=== PATIENT | male | born 1955 | race Caucasian/White ===

== ENCOUNTER 2018-08-03 21:45 | Inpatient (IN) | payer OTHER ==
[~2018-08-03] VITALS: Ht 177.8 cm; Wt 75.5 kg
[2018-08-03 21:51] VITALS: Ht 177.8 cm; Wt 75.5 kg
--- NOTE | 2018-08-03 21:58 | NUR ---
EKG IN PROGRESS BY EMT
--- NOTE | 2018-08-03 22:00 | NUR ---
PT BIB BY SISTER FOR C/O CHEST PAIN AND SOB. PT HAS PACEMAKER THAT WAS PLACED 3-5 YEARS AGO AND AN AORTIC VALVE REPLACEMENT IN 1986. PT TAKES COUMADIN ALONG WITH OTHER MEDS, BUT HIS RISK CONSULTANT CALLED YESTERDAY AND INSTRUCTED PT NOT TO TAKE COUMADIN TODAY BECAUSE HIS BLOOD LEVELS WERE TOO HIGH. PT HAS CHEST PAIN THAT DOES NOT RADIATE. PT STATES PAIN IS 8/10. PT IS SOB WITH RAPID RESPIRATIONS. PT APPEARS TO BE PALE. PT IS SPEAKING IN CLEAR AND FULL SENTENCES WITH MILD DISTRESS NOTED. PT SISTER AT BEDSIDE FOR TRANSLATION. PT CONNECTED TO OXYGEN AND CARDIAC, AND PLETH OX MONITORS. MD BRONSON AT BEDSIDE FOR MSE. PT CURTAIN OPEN TO NURSES STATION. WILL CONTINUE TO MONITOR
--- NOTE | 2018-08-03 22:05 | NUR ---
PT LUNG SOUNDS HAVE CRACKLES IN BILATERAL BASES
--- NOTE | 2018-08-03 22:14 | NUR ---
PT AGREED TO TAKE ASPIRIN PER MD BRONSON ORDERS. SEE EMAR. PT MADE AWARE OF REASONS TO TAKE ASPIRIN EVEN THOUGH PT WAS INSTRUCTED TO NOT TAKE ANY OTHER BLOOD THINNERS. PT VERBALIZED UNDERSTANDING AND AWARE OF NEED.
--- NOTE | 2018-08-03 22:19 | NUR ---
PT MEDICATED PER ORDER. PT VERBALIZED UNDERSTANDING OF MEDICATION TEACHING. SEE EMAR FOR DETAILS.
--- NOTE | 2018-08-03 22:30 | NUR ---
X RAY AT BEDSIDE
--- NOTE | 2018-08-03 22:36 | NUR ---
LAB AT BEDSIDE FOR BLOOD DRAW
[2018-08-03 22:44] LABS: BASOPHIL % 0.8 % (0-2); PLATELET COUNT 192 x10^3mcL (130-400)
--- NOTE | 2018-08-03 22:44 | NUR ---
PT STATES PAIN HAS NOW DECREASED TO A 3/10. RESPIRATIONS ARE DECREASING BUT STILL RAPID.
[2018-08-03 22:46] LABS: RED CELL DISTRIBUTION WIDTH 14.6 % (11.5-14.5)
[2018-08-03 23:06] LABS: CALCIUM 8.3 mg/dL (8.5-10.1); CARBON DIOXIDE 29.1 mmol/L (21-32); CREATININE SERUM 1.7 mg/dL (0.7-1.3); POTASSIUM SERUM 3.6 mmol/L (3.5-5.1)
[2018-08-03 23:11] LABS: BILIRUBIN TOTAL 0.7 mg/dL (0.20-1.00); TOTAL PROTEIN, SERUM 6.9 g/dL (6.4-8.2)
[2018-08-03 23:13] LABS: ALBUMIN 3.2 g/dL (3.4-5.0)
[2018-08-03] MEDS ORDERED: LATANOPROST2.5 ML OP (23:44)
--- NOTE | 2018-08-03 23:44 | NUR ---
SON AT BEDSIDE. PT AWARE HE IS BEING ADMITTED.
[2018-08-03] MEDS ORDERED: BETIMOL5 M1 OP (23:45)
[2018-08-03] MEDS ORDERED: FLOVENT DI100 MCG/A1 INH (23:46)
[2018-08-03] MEDS ORDERED: CLARITIN10 MG PO (23:46)
[2018-08-03] MEDS ORDERED: LEVOTHYROXIN0.088 M1 PO (23:47)
[2018-08-03] MEDS ORDERED: COUMADIN3 MG PO (23:47)
[2018-08-03] MEDS ORDERED: ZETIA10 M1 PO (23:47)
[2018-08-03] MEDS ORDERED: ZOCOR20 MG PO (23:48)
[2018-08-03] MEDS ORDERED: [UNRECOGNIZED DRUG - CODE] PO (23:49)
[2018-08-03] MEDS ORDERED: FUROSEMIDE40 MG PO (23:49)
[2018-08-03] MEDS ORDERED: LOSARTAN POTASS25 M1 PO (23:50)
[2018-08-03] MEDS ORDERED: AMIODARONE HCL200 MG PO (23:50)
[2018-08-03] MEDS ORDERED: CARVEDILOL25 M1 PO (23:50)
--- NOTE | 2018-08-04 00:20 | NUR ---
REPORT GIVEN TO JACOBY CALDERON
--- NOTE | 2018-08-04 00:40 | NUR ---
PT TRANSFERRED TO TELE FLOOR ACCOMPANIED BY NURSE AND EMT. NO S/S OF DISTRESS. RESP E/U. PT CONNECTED TO MONITOR UPON TRANSFER. IV SITE PATENT. NO S/S OF INFILTRATION. RN AT BEDSIDE TO ASSUME CARE OF PT.
--- NOTE | 2018-08-04 00:45 | NUR ---
PT ARIVIED VIA REDD ACCOMPANIED BY FAMILY AND ED NURSE, PT IS A/O X4, NO COMPLAINTS OF CHEST PAIN AT THIS TIME,INTERNAL PACEMAKER TO THE LEFT CHEST WALL TELE 16 VENTRICULAR PACING, PT REPORTS SOB WHICH RESOLVED WITH 2L O2 VIA NC, LUNG SOUNDS FINE CRACKLES IN THE RIGHT LOWER LOBE, PT WAS ORIENTED TO ROOM, CALL LIGHT AND INSTRUCTED TO CALL FOR ANY ASSISTANCE, IV TO THE RIGHT AC 20 G SALINE LOCKED, BED RAILS UP X2, CALL LIGHT WITHIN REACH, SAFETY PRECAUTIONS IN PLACE, WILL CONTINUE TO MONITOR.
[2018-08-04 01:04] VITALS: BP 103/71
--- NOTE | 2018-08-04 05:09 | NUR ---
PT HAD NO EPISODES OF CHEST PAIN THROUGH THE NIGHT, PT HAD NO OCCURANCES OF SOB SINCE ADMISSION. PT RESTED COMFORTABLY THROUGH SHIFT, ALL NEEDS ATTENDED TO, SAFETY PRECAUTIONS WERE MAINTAINED, WILL CONTINUE TO MONITOR AND ENDORSE CARE TO DAY SHIFT RN
[2018-08-04 05:55] VITALS: BP 107/68
--- NOTE | 2018-08-04 07:10 | NUR ---
RECEIVED BEDSIDE REPORT FROM SERVICES ACCOUNT MANAGER NURSE AT THIS TIME. PATIENT RESTING COMFORTABLY IN BED. NO APPARENT DISTRESS OR DISCOMFORT NOTED. BREATHING EVEN AND UNLABORED. PATIENT ON 2L NC AND TOLERATING WELL. PATIENT DENIES CHEST PAIN AT THIS TIME. IV PATENT AND INTACT. ALL QUESTIONS AND CONCERNS ADDRESSED. ALL NEEDS ATTENDED TO. WILL CONTINUE TO MONITOR
[2018-08-04 09:31] VITALS: BP 102/65
--- NOTE | 2018-08-04 10:00 | NUR ---
ALL MORNING MEDICATIONS ADMINISTERED. PATIENT TOLERATED MEDICATION ADMINISTRATION WELL. NO APPARENT DISTRESS NOTED. NO ADVERSE EFFECTS NOTED. ALL NEEDS ATTENDED TO. WILL CONTINUE TO MONITOR
--- NOTE | 2018-08-04 13:00 | NUR ---
PATIENT SITTING UP IN BED EATING LUNCH AT THIS TIME. PATIENT TOLERATING DIET WELL. NO APPARENT DISTRESS OR DISCOMFORT NOTED. ALL NEEDS ATTENDED TO. WILL CONTINUE TO MONITOR
[2018-08-04 13:03] VITALS: BP 98/65
[2018-08-04 17:20] VITALS: BP 102/65
--- NOTE | 2018-08-04 17:54 | NUR ---
PATIENT SITTING UP ON SIDE OF BED EATING DINNER AT THIS TIME. PATIENT TOLERATING DIET WELL. NO APPARENT DISTRESS OR DISCOMFORT NOTED. ALL NEEDS ATTENDED TO. WILL CONTINUE TO MONITOR
--- NOTE | 2018-08-04 19:10 | NUR ---
PATIENT RESTING COMFORTABLY IN BED. NO APPARENT DISTRESS OR DISCOMFORT NOTED. IV PATENT AND INTACT. ALL QUESTIONS AND CONCERNS ADDRESSED. SAFETY PRECAUTIONS MAINTAINED. ALL NEEDS ATTENDED TO. WILL ENDORSE ALL CARE TO CLOTH EXAMINER MACHINE NURSE
--- NOTE | 2018-08-04 19:50 | NUR ---
RECEIVED REPORT FROM GUADALUPE RN. PT RESTING IN BED. AA&O X4. NO SOB ON ROOM AIR. BREATHING EVEN AND UNLABORED. NO C/O CHEST PAIN. NO DISTRESS NOTED. IV TO RAC, INTACT. SAFETY MEASURES IN PLACE. BED IN LOWEST POSITION. SIDE RAILS UP X2. INSTRUCTED PT TO USE THE CALL LIGHT FOR ASSISTANCE. CALL LIGHT WITHIN REACH.
[2018-08-04 22:06] VITALS: BP 95/64
[2018-08-05 04:49] VITALS: BP 97/66
--- NOTE | 2018-08-05 05:18 | NUR ---
PT SLEPT AT LONG INTERVALS THROUGHOUT SHIFT. NO SOB ON ROOM AIR. NO C/O CHEST PAIN. NO DISTRESS NOTED. SAFETY MEASURES MAINTAINED. ALL NEEDS ATTENDED TO. CALL LIGHT WITHIN REACH. WILL ENDORSE CONTINUITY OF CARE TO ONCOMING RN.
[2018-08-05 06:25] LABS: ALKALINE PHOSPHATASE 46 U/L (46-116); ALT/SGPT 19 U/L (16-63); AST/SGOT 19 U/L (15-37); BILIRUBIN TOTAL 1.2 mg/dL (0.20-1.00); CALCIUM 8.3 mg/dL (8.5-10.1); CARBON DIOXIDE 29.8 mmol/L (21-32); CHLORIDE SERUM 104 mmol/L (98-107); CREATININE SERUM 1.2 mg/dL (0.7-1.3); GFR1 > 60 mL/min; GLUCOSE SERUM 78 mg/dL (74-106); SODIUM SERUM 143 mmol/L (136-145)
[2018-08-05 06:30] LABS: BASOPHIL % 0.4 % (0-2); PLATELET COUNT 157 x10^3mcL (130-400); RED CELL DISTRIBUTION WIDTH 14.3 % (11.5-14.5)
--- NOTE | 2018-08-05 07:10 | NUR ---
RECEIVED PT FROM ARABIC TRANSLATOR YUMIKO. Stephna/JULIA. TELE#[id number]. PT DENIES CHEST PAIN/PRESSURE AT THIS TIME. RESPIRATIONS EQUAL AND UNLABORED ON RA. DENIES SOB. IV TO RAC SALINE LOCKED. NO REDNESS OR SWELLING NOTED. PT DENIES ANY PAIN AT THIS TIME. WILL CONTINUE TO MONITOR. CALL LIGHT IN REACH. BED IN LOWEST POSITION.
[2018-08-05 07:43] LABS: ALBUMIN 2.6 g/dL (3.4-5.0); POTASSIUM SERUM 2.9 mmol/L (3.5-5.1); TOTAL PROTEIN, SERUM 5.9 g/dL (6.4-8.2)
--- NOTE | 2018-08-05 07:50 | NUR ---
PAGED DR. DIXON REGARDING POTASSIUM OF 2.9. AWAITING CALL BACK.
--- NOTE | 2018-08-05 09:32 | NUR ---
PT SITTING UP IN BED. NO ACUTE RESP DISTRESS NOTED ON RA. PT DENIES CHEST PAIN/PRESSURE AT THIS TIME. BLOOD PRESSURE CHECKED WAS 91/64, HR 70. GIVEN PO MEDS. PAGED DR. DIXON REGARDING PARAMETER FOR BLOOD PRESSURE MEDICATION. AWAITING CALL BACK. WILL CONTINUE TO MONITOR. CALL LIGHT IN REACH. BED IN LOWEST POSITION.
[2018-08-05 09:39] VITALS: BP 94/59
--- NOTE | 2018-08-05 09:41 | NUR ---
SPOKE WITH DR. DIXON REGARDING POTASSIUM OF 2.9. DR. DIXON ORDERED K-RIDER 40 MEQ IV ONCE. CONFIRMED ORDER TORB. INFORMED DR. DIXON OF BLOOD PRESSURE 91/54. PER WILIAM BOWIE TO GIVEN COREG AND LASIX.
--- NOTE | 2018-08-05 10:11 | NUR ---
US TECH AT BEDSIDE FOR ECHO
--- NOTE | 2018-08-05 12:36 | NUR ---
PT SITTING UP IN BED. NO ACUTE RESP DISTRESS NOTED ON RA. PT DENIES ANY PAIN AT THIS TIME. PT DENIES CHEST PAIN/PRESSURE. WILL CONTINUE TO MONITOR. CALL LIGHT IN REACH. BED IN LOWEST POSITION.
[2018-08-05 13:34] VITALS: BP 93/63
[2018-08-05 16:47] VITALS: BP 91/64
--- NOTE | 2018-08-05 19:17 | NUR ---
PT RECEIVED A/O X4, ABLE TO MAKE NEEDS KNOWN. TELE #16, DENIES ANY CP/PRESSURE. PULSES PALPABLE, EDEMA TO BLE. BREATHING IS EVEN AND UNLABORED ON RA, NO RESP DISTRESS NOTED. ABD SOFT AND NONDISTENDED, DENIES N/V. VOIDS FREELY. STRICT I&O's: FLUID RESTRICTION OF 1800 ML/HR. AMBULATORY WITH STEADY GAIT. PT DENIES ANY PAIN AT THIS TIME. SL TO RAC, PATENT AND INTACT, SITE FREE FROM REDNESS OR SWELLING. BED IN LOWEST SETTING, SIDE RAILS UP X2, CALL LIGHT WITHIN REACH. WILL CONT TO MONITOR.
[2018-08-05 21:08] VITALS: BP 90/61
--- NOTE | 2018-08-06 00:15 | NUR ---
PT AWAKE AND WATCHING TV IN BED. BREATHING IS EVEN AND UNLABORED, NO RESP DISTRESS NOTED. PT DENIES ANY PAIN AT THIS TIME. IV TO RAC, INTACT. NO ACUTE DISTRESS OBSERVED. CALL LIGHT WITHIN REACH. WILL CONT TO MONITOR.
[2018-08-06 05:50] VITALS: BP 101/69
--- NOTE | 2018-08-06 06:03 | NUR ---
PT SLEPT WELL THROUGHOUT THE EVENING. BREATHING IS EVEN AND UNLABORED, NO RESP DISTRESS NOTED. PT DENIES HAVING ANY PAIN AT THIS TIME. IV TO RAC, PATENT AND INTACT, SITE FREE FROM REDNESS OR SWELLING. NO ACUTE CHANGES ENCOUNTERED DURING SHIFT. ALL NEEDS MET. CALL LIGHT WITHIN REACH. WILL ENDORSE CARE TO AM NURSE.
[2018-08-06 06:42] LABS: BASOPHIL % 0.3 % (0-2); PLATELET COUNT 180 x10^3mcL (130-400)
[2018-08-06 06:56] LABS: RED CELL DISTRIBUTION WIDTH 14.8 % (11.5-14.5)
[2018-08-06 07:04] LABS: BILIRUBIN TOTAL 0.93 mg/dL (0.20-1.00); CARBON DIOXIDE 33.8 mmol/L (21-32); CREATININE SERUM 1.4 mg/dL (0.7-1.3); PHOSPHOROUS 2.9 mg/dL (2.5-4.9); POTASSIUM SERUM 4.2 mmol/L (3.5-5.1); TOTAL PROTEIN, SERUM 6.5 g/dL (6.4-8.2)
--- NOTE | 2018-08-06 07:53 | NUR ---
RECEIVED PATIENT FROM YUMIKO HERNANDEZ. PATIENT IN BED, NO COMPLAINTS AT THIS TIME. STATED THAT DR DIXON SPOKE W PATIENT ABOUT POSSIBLE DISCHARGE TODAY. WILL WATCH FOR DR DIXON TO COME IN ABOUT PLAN OF CARE. CALL LIGHT IN REACH.
[2018-08-06 09:02] VITALS: BP 98/70
--- NOTE | 2018-08-06 12:03 | NUR ---
PATIENT IN BED NO COMPLAINTS OF PAIN OR SOB. STILL AWAITING FOR DR IDXON TO MAKE ROUNDS. CALL LIGHT IN REACH.
[2018-08-06 12:17] VITALS: BP 96/64
--- NOTE | 2018-08-06 13:35 | NUR ---
PATIENT IN BED, NO COMPLAINTS OF PAIN OR SOB. AWAITING DR DIXON FOR ROUNDS.
[2018-08-06 14:03] VITALS: BP 101/64
--- NOTE | 2018-08-06 14:52 | NUR ---
DISCHARGE INSTRUCTIONS GIVEN TO PATIENT & SON. DISCHARGE PACKET GIVEN TO PATIENT, ALL QUESTIONS ANSWERED. IV CATHETER REMOVED AND INTACT, TELEMETRY UNIT RETURNED TO [facility]. PATIENT W BELONGINGS ESCORTED DOWNSTAIRS W ANTONIO MORGAN
== END 2018-08-06 14:53 | disposition home or self-care (01) | DRG 280 ==
LOC: ED 21:45 → DU 23:53
PROVIDERS: Emergency Medicine; ADMIT Internal Medicine
DX: I21.4 Non-ST elevation (NSTEMI) myocardial infarction (principal); I50.23 Acute on chronic systolic (congestive) heart failure; I13.0 Hypertensive heart and chronic kidney disease with heart failure and stage 1 through stage 4 chronic kidney disease, or unspecified chronic kidney disease; N17.9 Acute kidney failure, unspecified; I42.9 Cardiomyopathy, unspecified; I24.9 Acute ischemic heart disease, unspecified; N18.3 Chronic kidney disease, stage 3 (moderate); I34.0 Nonrheumatic mitral (valve) insufficiency; I36.1 Nonrheumatic tricuspid (valve) insufficiency; E78.5 Hyperlipidemia, unspecified; Z79.82 Long term (current) use of aspirin; Z95.2 Presence of prosthetic heart valve; Z68.25 Body mass index [BMI] 25.0-25.9, adult; Z95.810 Presence of automatic (implantable) cardiac defibrillator; I25.10 Atherosclerotic heart disease of native coronary artery without angina pectoris
CPT/HCPCS: 83880; J1940; J3480; Q0092